=== PATIENT | male | born 1975 | race Caucasian/White ===

== ENCOUNTER 2019-08-17 22:49 | Emergency (ER) | payer BC ==
[2019-08-17 22:56] VITALS: BP 120/77; PULSE 87; O2SAT 97
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
== END 2019-08-17 23:29 | disposition home or self-care (01) ==
LOC: ED 22:49
DX: Z04.1 Encounter for examination and observation following transport accident (principal)
CPT/HCPCS: 99283